=== PATIENT | female | born 1975 | race Caucasian/White ===

== ENCOUNTER 2018-01-03 11:05 | Emergency (ER) | payer OTHER ==
[~2018-01-03] VITALS: Ht 172.7 cm; Wt 90.7 kg
[2018-01-03 11:11] VITALS: BP_SYST 121
[2018-01-03 12:41] VITALS: BP_SYST 122
== END 2018-01-03 12:41 | disposition home or self-care (01) ==
LOC: SED 11:05
DX: S53.401A Unspecified sprain of right elbow, initial encounter (principal); S50.11XA Contusion of right forearm, initial encounter; W10.9XXA Fall (on) (from) unspecified stairs and steps, initial encounter; Y93.89 Activity, other specified; Y92.89 Other specified places as the place of occurrence of the external cause; Y99.8 Other external cause status
CPT/HCPCS: 73090; 81025; 99284

== ENCOUNTER 2021-08-29 02:46 | Emergency (ER) | payer OTHER ==
[~2021-08-29] VITALS: Ht 172.7 cm; Wt 99.8 kg
[2021-08-29 02:46] VITALS: BP_SYST 141
--- NOTE | 2021-08-29 02:47 | NUR ---
Placed in room 8 . 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 To gown for exam. Side rails up. Report given to Dima DEL REAL.
[2021-08-29] MEDS ORDERED: NITROGLYCERIN 0.4 MG TAB.SUBL SL ONE (03:00)
[2021-08-29] MEDS ORDERED: ASPIRIN 325 MG TABLET PO ONE (03:00)
[2021-08-29] MEDS ORDERED: ASPIRIN 325 MG TABLET ONE (03:28)
[2021-08-29 03:50] LABS: BASOPHILS # (AUTO) 0.1 K/uL (0.0-0.2); BASOPHILS % (AUTO) 0.7 % (0.0-2.0); EOSINOPHILS # (AUTO) 0.3 K/uL (0.0-0.4); EOSINOPHILS % (AUTO) 3.8 % (0.0-4.0); HEMATOCRIT 35.7 % (36-48); LYMPHOCYTES # (AUTO) 1.9 K/uL (1.0-5.5); LYMPHOCYTES % (AUTO) 25.2 % (20.5-51.5); MEAN CORPUSCULAR HEMOGLOBIN 29 pg (27-31); MEAN CORPUSCULAR HGB CONC 34 % (32-36); MEAN CORPUSCULAR VOLUME 86 fL (79.0-98.0); MONOCYTES # (AUTO) 0.6 K/uL (0.0-1.0); MONOCYTES % (AUTO) 8.4 % (1.7-9.3); NEUTROPHILS # (AUTO) 4.8 K/uL (1.8-7.7); NEUTROPHILS % (AUTO) 61.9 % (40.0-70.0); PLATELET COUNT (AUTO) 255 K/uL (130-430); RED BLOOD CELL COUNT(AUTO) 4.14 MIL/uL (4.2-6.2); RED CELL DISTRIBUTION WIDTH 14.4 % (9.0-15.0); WHITE BLOOD COUNT (AUTO) 7.7 K/uL (4.8-10.8)
--- NOTE | 2021-08-29 03:52 | NUR ---
Pt C/O chestpain. States she wke up with a tightness sensation on her chest AOX4 VSS Verbally responsive Able to makeneeds known Pt medicated Will continuet to monitor
[2021-08-29 04:02] LABS: CALCIUM 8.5 mg/dL (8.4-11.0); CREATININE 0.76 mg/dL (0.55-1.30); POTASSIUM 3.5 mmol/L (3.5-5.1)
[2021-08-29 04:10] LABS: ALBUMIN 3.3 g/dL (3.4-4.8); TOTAL BILIRUBIN 0.4 mg/dL (0.0-1.0)
--- NOTE | 2021-08-29 04:37 | NUR ---
Pt resting comfortably in bed at this time AOX4 VSS Will continue to monitor
--- NOTE | 2021-08-29 06:08 | NUR ---
Patient given written and verbal discharge instructions and verbalizes understanding. ER MD discussed with patient the results and treatment provided. Patient in stable condition. ID arm band removed. IV catheter removed intact and dressing applied, no active bleeding. Patient educated on pain management and to follow up with PMD. Pain Scale 0. Opportunity for questions provided and answered. AOX4 VSS NAD at this time Pt exited ED in stable gait
[2021-08-29 06:10] VITALS: BP_SYST 121
== END 2021-08-29 06:08 | disposition home or self-care (01) ==
LOC: SED 02:46
DX: R07.89 Other chest pain (principal)
CPT/HCPCS: 36415; 71045; 80053; 83880; 84484; 85025; 93005; 99285